=== PATIENT | male | born 1950 | race Caucasian/White ===

== ENCOUNTER 2025-05-28 09:54 | Emergency (ER) | payer MEDICARE, SELFPAY ==
--- NOTE | ~2025-05-28 | CT_ITS ---
EXAMINATION: CT brain wo rashid, 05/28/2025 11:55 REMOTE BROADCAST ENGINEER HISTORY: confusion COMPARISON: No comparisons available. Technique: Axial images obtained of the brain without contrast. One or more of the following dose reduction techniques were used: automated exposure control, adjustment of the mA and/or kV according to patient size, use of iterative reconstruction technique. Findings: No acute infarct or parenchymal hemorrhage. No abnormal mass or mass effect. No midline shift. No extra-axial fluid collections. No hydrocephalus. Mastoid air cells unremarkable. Sinuses and orbits unremarkable. No acute fracture. No significant facial or scalp soft tissue swelling evident. No radiopaque foreign body is seen. Impression: 1.No acute intracranial abnormality. Reviewed, dictated and finalized at location P. TE BROADCAST ENGINEER Impression: 1.No acute intracranial abnormality.
--- NOTE | ~2025-05-28 | CT_ITS ---
EXAMINATION: CTA chest PE abdomen pel DATE: 05/28/2025 12:07 INDICATION: Rule out PE or arterial compromise TECHNIQUE: Computed tomography angiography (CTA) of the chest was performed with 100 mL Omnipaque-350 intravenous contrast timed to evaluate the pulmonary arteries. Coronal maximum intensity projection 3D-reconstructions were created by the technologist. Computed tomography (CT) of the abdomen and pelvis was performed with intravenous contrast. The dose-length product was 404.73 mGy-cm. COMPARISON: None. FINDINGS: CTA CHEST: The thoracic aorta is normal in size and enhancement with no dissection, aneurysm or para-aortic hematoma. No gross ulceration seen. No pulmonary emboli seen. Small right and trace left-sided pleural effusion present with 3.5 x 1.9 cm right lower lobe mass. Masses also appear to be present in the sternal region extending into the anteromedial left upper lobe, image 53 series 6. The remaining lung martinez are clear with no consolidation or pneumothorax. Bones appear intact with no gross bony metastatic disease. CT ABDOMEN AND PELVIS: In the abdomen and pelvis, the abdominal aorta is normal in size. No acute arterial occlusion seen. Moderately severe diffuse atherosclerotic disease present especially in the renal arteries. No AAA or dissection. No gross aortic ulceration seen. Numerous metastatic-appearing masses throughout the liver. The largest is anterior segment of the right lobe measuring 4 cm. The bowel gas pattern is nonobstructive with no free air or pneumatosis. Small amount of free fluid extends into the lower pelvis. Urinary bladder unremarkable. Prostate mildly enlarged. No hydroureteronephrosis. No gross CT evidence of acute cholecystitis or pancreatitis. The stomach is unopacified and nondistended but no obvious acute process. The bones appear intact. IMPRESSION: 1. No evidence of thoracic or abdominal aortic aneurysm/dissection; no pulmonary emboli seen. 2. Extensive metastatic disease in the thorax, as well as in the abdomen including numerous liver masses. Reviewed, dictated and finalized at location A. TECHNICIAN IMPRESSION: 1. No evidence of thoracic or abdominal aortic aneurysm/dissection; no pulmonar y emboli seen. 2. Extensive metastatic disease in the thorax, as well as in the abdomen includ ing numerous liver masses.
[2025-05-28 09:58] VITALS: BP 90/60; PULSE 113; RESP 16; TEMP 36.2; O2SAT 98
[2025-05-28 10:32] VITALS: RESP 22
--- NOTE | 2025-05-28 10:43 | ECG_ITS ---
Test Date: 2025-05-28 11:06:48 Measurements Intervals [place] Rate: 91 P: 84 SC: 134 QRS: -63 QRSD: 84 T: 65 QT: 360 QTc: 443 Interpretive Statements SINUS RHYTHM POSSIBLE RIGHT VENTRICULAR CONDUCTION DELAY LEFT ANTERIOR FASCICULAR BLOCK VOLTAGE CRITERIA FOR LVH NONSPECIFIC T-WAVE ABNORMALITY- HIIGH LATERAL LEADS BASELINE ARTIFACT- I, II, III, AVR, AVL, AVF, V1 ABNORMAL ECG No previous ECG available for comparison Electronically Signed On 05-28-2025 11:31:01 FINE CRAFT ARTIST by Balaji Nolan D.O.
--- NOTE | 2025-05-28 10:47 | ED.GENADULT ---
HPI - General Adult General Chief complaint: Unspecified Stated complaint: many things Time Seen by Provider: 05/28/25 10:23 Source: patient Mode of arrival: ambulatory Limitations: no limitations History of Present Illness HPI narrative: This is a 74 year old male that presents to the ER for multiple complaints. Reports weakness, not able to ambulate, not eating or drinking, worsening over the last week. Reports he was told that he has liver and lung cancer at [facility] last week and has not had any follow up for this yet. Also reports he has history of peripheral vascular disease. His left leg has been hurting and his foot has been purple for several months. Related Data Allergies Allergy/AdvReac Type Severity Reaction Status Date / Time No Known Allergies Allergy Verified 05/28/25 10:02 Review of Systems Review of Systems: All systems reviewed & are unremarkable except as noted in HPI and below Exam Narrative: GENERAL: Chronically ill-appearing, cachectic, and in no acute distress. HEAD: Normocephalic, atraumatic. EYES: PERRLA and EOMI. ENT: Nares clear, no rhinorrhea or epistaxis. Mucous membranes dry. Oropharynx without tonsillar hypertrophy exudate or other lesions. Bilateral TMs pearly caputo non-bulging NECK: Supple. No adenopathy or masses. CHEST: Clear to auscultation. No respiratory distress. No wheezes rales or rhonchi HEART: Regular rate and rhythm. No murmur heard. Normal peripheral pulses. ABDOMEN: Soft, nontender, nondistended, normal active bowel sounds. EXTREMITIES: Normal range of motion. No edema. SKIN: Warm, dry, no rash. NEURO: No focal deficits. Alert and oriented x3. CN II-XII grossly intact PSYCH: Normal mood and affect Course Vital Signs Vital signs: Vital Signs Temperature 97.2 F L 05/28/25 09:58 Pulse Rate 113 H 05/28/25 09:58 Respiratory Rate 16 05/28/25 09:58 Blood Pressure 90/60 L 05/28/25 09:58 Pulse Oximetry 98 05/28/25 09:58 Temperature 97.2 F L 05/28/25 09:58 Pulse Rate 99 05/28/25 15:07 Respiratory Rate 20 05/28/25 15:07 Blood Pressure 90/60 L 05/28/25 09:58 Pulse Oximetry 97 05/28/25 15:07 MDM MDM Narrative Medical decision making narrative: Patient presents to the emergency department with weakness, anorexia, abdominal discomfort, her left leg pain. Patient is severely cachectic. Soft blood pressure, tachycardic upon arrival. Afebrile. Cbc without leukocytosis. Shows anemia and severe thrombocytopenia. Metabolic panel with mild hypokalemia, liver function derangements. Initial lactic elevated, this down trended with fluids. Urine is nitrate positive, but no white blood cells. CT brain without acute findings. CTA chest PE with abdomen and pelvis obtained. This shows extensive metastatic disease in the thorax as well as the abdomen. After long discussion with the patient and family he wishes to go home with hospice. This has been arranged Differential Diagnosis Differential Diagnosis: Lung cancer, liver cancer, metastatic disease, dehydration, anemia, thrombocytopenia, electrolyte derangement, PE, pneumonia Lab Data [facility] Lab Attestation statement: I personally reviewed the patient's lab results. 05/28/25 10:59 05/28/25 10:59 Labs: Lab Results 05/28/25 05/28/25 05/28/25 Range/Units 10:59 10:59 13:01 WBC 8.9 (4.5-10.0) K/mm3 RBC 3.49 L (4.6-6.20) M/mm3 Hgb 8.0 L (14.0-18.0) g/dL Hct 27.4 L (42.0-52.0) % MCV 78.5 L (80-100) fl MCH 22.9 L (26-34) pg MCHC 29.2 L (32-36) g/dl RDW 21.2 H (11.5-14.5) % Plt Count 35 L (150-375) k/mm3 MPV TNP Immature Gran % (Auto) Not Reportable Neut % (Auto) Not Reportable Lymph % (Auto) Not Reportable [place] % (Auto) Not Reportable Eos % (Auto) Not Reportable Baso % (Auto) Not Reportable Lymph # (Auto) Not Reportable [place] # (Auto) Not Reportable Eos # (Auto) Not Reportable Baso # (Auto) Not Reportable Abs Immat Gran (auto) Not Reportable Absolute Neuts (auto) Not Reportable Absolute Nucleated RBC Not Reportable Total Counted 100 Neutrophils % (Manual) 55 (46-73) % Band Neutrophils % 9 H (0-6) % Lymphocytes % (Manual) 33 (18-44) % Monocytes % (Manual) 3 (3-9) % Nucleated RBC % Not Reportable Abs Neuts (Manual) 5.69 (1.3-6.7) K/mm3 Abs Lymphs (Manual) 2.93 (1.1-4.5) K/mm3 Abs Monocytes (Manual) 0.26 (0.1-0.90) K/mm3 Nucleated RBCs 3 % Atypical Lymphocytes Present Platelet Estimate Decreased (Adequate) % Immature Plt Fraction 8.4 (0.9-11.2) % Hypochromasia 1+ Anisocytosis 2+ Ovalocytes 1+ Bess Cells 1+ Acanthocytes (Spur) 1+ Schistocytes Occasional PT 28.7 H (11.1-14.7) Seconds INR 2.8 APTT 34.5 (22.3-36.8) Seconds Sodium 140 (137-145) mmol/L Potassium 3.3 L (3.4-5.0) mmol/L Chloride 102 (98-107) mmol/L Carbon Dioxide 26 (22-30) mmol/L Anion Gap 12 (4-12) mmol/L BUN 37 H (9-20) mg/dL Creatinine 0.95 (0.7-1.3) mg/dL Estim Creat Clear Calc Not Reportable Estimated GFR > 60 (59 - ) Glucose 188 H (65-110) mg/dL Lactic Acid 7.4 H* (0.7-2.0) mmol/L Calcium 9.1 (8.4-10.2) mg/dL Magnesium 1.9 (1.6-2.3) mg/dL Total Bilirubin 1.4 H (0.2-1.3) mg/dL AST 114 H (17-59) U/L ALT 56 H (6-50) U/L Alkaline Phosphatase 670 H (38-126) U/L C-Reactive Protein 5.6 H Cancelled (<1.0) mg/dL Total Protein 6.3 (6.3-8.2) g/dL Albumin 3.2 L (3.5-5.1) g/dL Lipase 433 H (23-300) U/L Urine Color Yellow (Yellow) Urine Appearance Cloudy H (Clear) Urine pH 6.0 (5.0-9.0) Ur Specific [place] 1.036 H (1.001-1.035) Urine Protein Trace (Negative) mg/dL Urine Glucose (UA) Negative (Negative) mg/dL Urine Ketones Trace H (Negative) mg/dL Ur Blood (Man) 2+ H (Negative) Urine Nitrate Positive H (Negative) Urine Bilirubin Negative (Negative) Urine Urobilinogen 2.0 H (<2.0) mg/dL Add Ur Microanalysis Reviewed Leukocyte Esterase Rfl Negative (Negative) CLAUDIA/UL Urine RBC 11-20 H (0-2) /hpf Urine WBC 0-5 (0-3) /hpf Ur Squamous Epith Cells Few (Few) /hpf Urine Bacteria 4+ H /hpf Urine Casts 6-10 12/16/25 Range/Units 14:05 WBC (4.5-10.0) K/mm3 RBC (4.6-6.20) M/mm3 Hgb (14.0-18.0) g/dL Hct (42.0-52.0) % MCV (80-100) fl MCH (26-34) pg MCHC (32-36) g/dl RDW (11.5-14.5) % Plt Count (150-375) k/mm3 MPV Immature Gran % (Auto) Neut % (Auto) Lymph % (Auto) [place] % (Auto) Eos % (Auto) Baso % (Auto) Lymph # (Auto) [place] # (Auto) Eos # (Auto) Baso # (Auto) Abs Immat Gran (auto) Absolute Neuts (auto) Absolute Nucleated RBC Total Counted Neutrophils % (Manual) (46-73) % Band Neutrophils % (0-6) % Lymphocytes % (Manual) (18-44) % Monocytes % (Manual) (3-9) % Nucleated RBC % Abs Neuts (Manual) (1.3-6.7) K/mm3 Abs Lymphs (Manual) (1.1-4.5) K/mm3 Abs Monocytes (Manual) (0.1-0.90) K/mm3 Nucleated RBCs % Atypical Lymphocytes Platelet Estimate (Adequate) % Immature Plt Fraction (0.9-11.2) % Hypochromasia Anisocytosis Ovalocytes Bess Cells Acanthocytes (Spur) Schistocytes PT (11.1-14.7) Seconds INR APTT (22.3-36.8) Seconds Sodium (137-145) mmol/L Potassium (3.4-5.0) mmol/L Chloride (98-107) mmol/L Carbon Dioxide (22-30) mmol/L Anion Gap (4-12) mmol/L BUN (9-20) mg/dL Creatinine (0.7-1.3) mg/dL Estim Creat Clear Calc Estimated GFR (59 - ) Glucose (65-110) mg/dL Lactic Acid 2.6 H (0.7-2.0) mmol/L Calcium (8.4-10.2) mg/dL Magnesium (1.6-2.3) mg/dL Total Bilirubin (0.2-1.3) mg/dL AST (17-59) U/L ALT (6-50) U/L Alkaline Phosphatase (38-126) U/L C-Reactive Protein (<1.0) mg/dL Total Protein (6.3-8.2) g/dL Albumin (3.5-5.1) g/dL Lipase (23-300) U/L Urine Color (Yellow) Urine Appearance (Clear) Urine pH (5.0-9.0) Ur Specific [place] (1.001-1.035) Urine Protein (Negative) mg/dL Urine Glucose (UA) (Negative) mg/dL Urine Ketones (Negative) mg/dL Ur Blood (Man) (Negative) Urine Nitrate (Negative) Urine Bilirubin (Negative) Urine Urobilinogen (<2.0) mg/dL Add Ur Microanalysis Leukocyte Esterase Rfl (Negative) CLAUDIA/UL Urine RBC (0-2) /hpf Urine WBC (0-3) /hpf Ur Squamous Epith Cells (Few) /hpf Urine Bacteria /hpf Urine Casts Imaging Data Radiologist's impression: ITS Impressions Head CT 05/28/25 12:12 Impression: 1.No acute intracranial abnormality. Chest/Abdomen/Pelvis CTA 05/28/25 12:20 IMPRESSION: 1. No evidence of thoracic or abdominal aortic aneurysm/dissection; no pulmonary emboli seen. 2. Extensive metastatic disease in the thorax, as well as in the abdomen including numerous liver masses. Critical Care Time Critical Care Time Critical Care Time: No Discharge Plan Discharge Clinical Impression: Metastatic cancer Qualifiers: Area of secondary neoplastic involvement: unspecified site Qualified Code(s): C79.9 - Secondary malignant neoplasm of unspecified site Patient Disposition: Hospice - Home Condition: Terminal Additional Instructions: Follow up with hospice as directed Patient Language: [place] Follow-up/Referrals: PHYSICIAN NOT ON STAFF,NONSTAFF [Non-Staff]
[2025-05-28] MEDS: SODIUM CHLORIDE 0.9% IV 1,000 ML 999 ML IV CONT (11:05)
[2025-05-28 11:11] LABS: Hematocrit 27.4 % (42.0-52.0); Hemoglobin 8.0 g/dL (14.0-18.0); Immature Platelet Fraction Pct 8.4 % (0.9-11.2); Mean Corpuscular HGB Conc 29.2 g/dl (32-36); Mean Corpuscular Hemoglobin 22.9 pg (26-34); Mean Corpuscular Volume 78.5 fl (80-100); Platelet Count Result 35 k/mm3 (150-375); Red Blood Count 3.49 M/mm3 (4.6-6.20); White Blood Count 8.9 K/mm3 (4.5-10.0)
[2025-05-28 11:22] LABS: INR 2.8; Prothrombin Time 28.7 Seconds (11.1-14.7)
[2025-05-28 11:23] LABS: Partial Thromboplastin Time 34.5 Seconds (22.3-36.8)
[2025-05-28 11:30] LABS: Alanine Aminotransferase 56 U/L (6-50); Albumin Level 3.2 g/dL (3.5-5.1); Alkaline Phosphatase 670 U/L (38-126); Anion Gap 12 mmol/L (4-12); Aspartate Amino Transferase 114 U/L (17-59); Bilirubin,Total 1.4 mg/dL (0.2-1.3); Blood Urea Nitrogen 37 mg/dL (9-20); CRP 5.6 mg/dL (<1.0); Calcium 9.1 mg/dL (8.4-10.2); Carbon Dioxide 26 mmol/L (22-30); Chloride 102 mmol/L (98-107); Estimated Glomerular Filt Rate > 60; Glucose 188 mg/dL (65-110); Potassium 3.3 mmol/L (3.4-5.0); Sodium 140 mmol/L (137-145); Total Protein 6.3 g/dL (6.3-8.2)
[2025-05-28 11:47] LABS: Band Neutrophils Percent 9 % (0-6); Lymphocytes Absolute Manual 2.93 K/mm3 (1.1-4.5); Lymphocytes Percent Manual 33 % (18-44); Monocytes Absolute Manual 0.26 K/mm3 (0.1-0.90); Monocytes Percent Manual 3 % (3-9); Neutrophils Absolute Manual 5.69 K/mm3 (1.3-6.7); Neutrophils Percent Manual 55 % (46-73); Total Cells Counted 100
[2025-05-28 11:48] LABS: Anisocytosis 2+; Hypochromasia 1+; Ovalocytes 1+
[2025-05-28 11:49] LABS: Acanthocytes 1+; Burr Cells 1+; Schistocytes Occasional
[2025-05-28 11:52] LABS: Lipase 433 U/L (23-300); Magnesium 1.9 mg/dL (1.6-2.3)
[2025-05-28] MEDS: MORPHINE SULFATE (*CRX) 4 MG/ML INJ 2 MG IV PUSH (13:17)
[2025-05-28] MEDS: ONDANSETRON INJ 4 MG/2 ML VIAL IV PUSH (13:18)
[2025-05-28 13:23] LABS: Add Urine Microscopic? YES; Appearance Urine Cloudy (Clear); Glucose Urine UA Negative (Negative); Leukocyte Esterase Ur Negative LEU/UL (Negative); Need Manual Microscopic Reviewed; Nitrate Urine Positive (Negative); Specific Grav Ur 1.036 (1.001-1.035)
[2025-05-28 15:07] VITALS: PULSE 99; RESP 20; O2SAT 97
--- NOTE | 2025-05-28 18:52 | PCCCNOTE ---
05/28/@ 1200-I was called to ER for poss Hospice/NH placement referral. I spoke with Pt A&O x4 and spouse regarding options for care now since pts metastatic disease has progressed to the point of hospice care. Pt wants to return home on Hospice and spouse agrees to this plan. She has been taking care of him and feels able to continue at this point. Hospice list given to them and they chose [facility]. Referral made , Info faxed and they will send a RN out by 1400 today to start the process. CR
--- NOTE | 2025-05-28 18:56 | PCCCNOTE ---
[id number]- I spoke with Pt ans spouse and telegraph repeater mechanic did come and talk and set them up on their services to begin at pts home tomorrow AM. DME was discussed and will be delivered in AM also. Pt wanting to D/C home now and spouse will transport him home. No further needs from Me. MD and Pts RN updated on plan. CR
== END 2025-05-28 15:08 | disposition hospice, home (50) ==
PROVIDERS: Emergency Provider Physician Assistant; PCP Internal Medicine
DX: C34.90 Malignant neoplasm of unspecified part of unspecified bronchus or lung (principal); C78.7 Secondary malignant neoplasm of liver and intrahepatic bile duct; I73.9 Peripheral vascular disease, unspecified; R94.31 Abnormal electrocardiogram [ECG] [EKG]; I44.4 Left anterior fascicular block
CPT/HCPCS: 36415; 70450; 71275; 74177; 80053; 81001; 83605; 83690; 83735; 85025; 85055; 85610; 85730; 86140; 87086; 93005; 96361; 96374; 96375; 99284; J2270; J2405; J7030; Q9967